=== PATIENT | female | born 1955 | race Caucasian/White ===

== ENCOUNTER → 2017-05-01 | Outpatient (CLI) | payer OTHER ==
--- NOTE | 2017-05-06 09:27 | MG ---
HISTORY: SCREENING Comparison: November 17, 2014 FINDINGS: Bilateral CC and MLO projections of the right and left breast were obtained. Scattered fibroglandula r tissue is seen to be present. No significant architectural distortion, mass or clustered microcalc ifications can be observed to suggest malignancy. No skin thickening or nipple retraction is appreci ated. No pathological lymphadenopathy can be identified. Benign-appearing calcifications scattered throughout the right and left breasts are observed. IMPRESSION: NO RADIOGRAPHIC EVIDENCE OF MALIGNANCY. ACR CATEGORY 2 - benign findings. FOLLOW-UP EXAM 1 YEAR. Diagnostic CAD was utilized and reviewed. * 0 (ZERO) - ASSESSMENT INCOMPLETE; ADDITIONAL IMAGING IS NEEDED. * 1/ (ONE) - NEGATIVE. * 2/II (TWO) - BENIGN FINDINGS. * 3/III (THREE) - PROBABLY BENIGN FINDING; SHORT INTERVAL FOLLOW-UP SUGGESTED. * 4/IV (FOUR) - SUSPICIOUS ABNORMALITY; BIOPSY SHOULD BE CONSIDERED. * 5/V - HIGHLY SUSPICIOUS OF MALIGNANCY; BIOPSY SHOULD BE PERFORMED. A NEGATIVE X-RAY REPORT SHOULD NOT DELAY BIOPSY IF A DOMINANT OR CLINICALLY SUSPICIOUS MASS IS PRESENT; 4 TO 8 PERCENT OF CANCERS ARE NOT IDENTIFIED BY X-RAY. A NEGA TIVE REPORT MAY REINFORCE THE CLINICAL IMPRESSION. ADENOSIS AND DENSE BREASTS MAY OBSCURE AN UNDERLY ING NEOPLASM. Reported By:
== END ==
LOC: RAD 10:09
PROVIDERS: ATTEND Internal Medicine
DX: Z12.31 Encounter for screening mammogram for malignant neoplasm of breast (principal)
CPT/HCPCS: 77067

== ENCOUNTER → 2017-05-15 | Outpatient (CLI) | payer OTHER ==
--- NOTE | 2017-05-15 08:58 | US ---
HISTORY: Right upper quadrant pain Study: Right upper quadrant ultrasound Comparison: None Technique: Multiple grayscale sonographic images were obtained. Findings: The liver is normal in size and configuration and without evidence for cyst, mass, or biliary ductal dilatation. There is increased echogenicity in the hepatic parenchyma suggestive of diffuse fatty inf iltration. No gallstones are present within the gallbladder. Gallbladder wall thickness was normal. T he common duct measured 3.5 millimeters. The head and body of the pancreas were normal. The tail is o bscured by overlying bowel gas. The right kidney is unobstructed and without masses, stones, or hydro nephrosis. IMPRESSION: No evidence for cholelithiasis or cholecystitis. Diffuse fatty infiltration of the liver Reported By:
--- NOTE | 2017-05-15 11:30 | NM ---
HISTORY: RUQ pain, nausea. Technique: Multiple scintigraphic images of the abdomen were obtained the intravenous administration of 5.4 mCi of technetium labeled Choletec. Following distention of the gallbladder with radiotracer a bottle of Ensure was given. An estimated gallbladder ejection fraction was calculated based on this physiologic response. Findings: Homogeneous uptake of radiotracer is seen throughout the liver. The intrabiliary ductal system is ob served normally. The common hepatic and common bile duct grossly appear unremarkable with normal kevan iary-bowel transit. The gallbladder is observed to fill normally without evidence for acute cholecys titis. After the administration of ensure, however, an abnormally low gallbladder ejection fraction o f 22% (normal > 35%) is observed. Although many etiologies (certain medications, cholangitis, pancrea titis, sepsis, etc.) can account for a low gallbladder ejection fraction, in the outpatient setting, the most common etiology is chronic cholecystitis. IMPRESSION: 1. Hepatobiliary imaging study demonstrates no evidence for hepatic dysfunction, acute cholecystitis , or biliary leak/biloma formation. 2. Low gallbladder ejection fraction of 22%, most likely reflecting chronic cholecystitis, as discus sed above. Reported By:
== END | disposition home or self-care (01) ==
LOC: RAD 08:21
PROVIDERS: ATTEND Internal Medicine
DX: R10.13 Epigastric pain (principal); R11.0 Nausea; K76.0 Fatty (change of) liver, not elsewhere classified
CPT/HCPCS: 76705; 78227

== ENCOUNTER → 2017-12-03 | Outpatient (CLI) | payer OTHER ==
--- NOTE | 2017-12-03 15:01 | US ---
HISTORY: New onset hypothyroidism Study: Thyroid sonography Comparison: None Technique: Multiple hernandez scale images of the thyroid were obtained. Findings: The thyroid is heterogeneous and enlarged measuring 4.6 cm on the right and 4.8 cm on the left in gre atest sagittal dimension with thickening of the thyroid isthmus measuring 1.1 cm. There are multiple bilateral solid nodules some of which are hyperechoic with a peripheral hypoechoic halo suggesting be nignity and with a few hypoechoic nodules noted as well. The largest nodule is on on the right measur es 1.2 cm in maximum dimension without microcalcifications. There is an equivocal 1.4 cm hypoechoic n odule deep within the inferior left lobe without microcalcifications. None of these nodules meet size criteria for tissue sampling at this time but for which continued temporal surveillance is recommend ed. IMPRESSION: Multinodular goiter. Reported By:
--- NOTE | 2017-12-04 08:57 | NM ---
Clinical history: New onset hypothyroidism. Exam: Thyroid scan with uptake utilizing iodide 123. Comparison: Thyroid ultrasound dated 12/03/2017. Technique: Following oral administration of 200 uCi of iodide 123, images were obtained of the thyroid gland in the anterior and both anterior oblique projections. Findings: Homogeneous uptake of iodide 123 is noted in both thyroid lobes. No cold defects or focal h ot areas are identified. The 6 hr uptake is within normal limits at 13.6% and the 24 hr uptake is dec reased at 8.3%. Impression: Decreased 24 hour thyroid uptake without evidence of a hypofunctioning or hyperfunctionin g nodule. Correlation with thyroid function test is requested. Reported By:
== END ==
LOC: RAD 08:00
PROVIDERS: ATTEND Internal Medicine
DX: E03.8 Other specified hypothyroidism (principal); E04.2 Nontoxic multinodular goiter
CPT/HCPCS: 76536; 78014; A9516